=== PATIENT | female | born 1970 | race Caucasian/White ===

== ENCOUNTER → 2020-01-19 | Outpatient (CLI) | payer OTHER ==
--- NOTE | 2020-01-19 12:50 | US ---
EXAMINATION TYPE: US transvaginal DATE OF EXAM: 01/19/2020 COMPARISON: CT March 28, 2015 CLINICAL HISTORY: N97.9 Infertility. TECHNIQUE: Transvaginal (TV). Date of LMP: 01/08/20 EXAM MEASUREMENTS: Uterus: 9.2 x 5.2 x 4.9 cm Endometrial Stripe: 1.1 cm Right Ovary: 1.9 x 1.7 x 1.8 cm Left Ovary: Obscured by overlying bowel gas 1. Uterus: Retroverted, somewhat heterogeneous 2. Endometrium: 4mm of free fluid, hyperechoic foci measuring 1.1 x 0.5 x 4.9cm 3. Right Ovary: exophytic cyst measuring 2.4 x 1.7 x 1.5cm 4. Left Ovary: Obscured by overlying bowel gas 5. Bilateral Adnexa: wnl 6. Posterior cul-de-sac: wnl redemonstration of heterogeneous retroverted uterus with thickened endometrium that has trilaminar ap pearance measuring up to 11 mm. Oval 5 mm hyperechoic focus is present. Small amount free fluid seen anterior to the uterus. Left ovary not identified. Right ovary felt normal in size with 2.4 cm simple appearing adnexal parao varian cyst marked by technologist IMPRESSION: Small amount free fluid in pelvic anterior to uterus is nonspecific. Redemonstration of r etroverted uterus. Normal or abnormal left ovary not identified. Consider further investigation with HSG or pelvic MRI based on clinical correlation.
== END | disposition home or self-care (01) ==
LOC: RADUSWWP 10:36
PROVIDERS: ATTEND Family Medicine
DX: N85.4 Malposition of uterus (principal)
CPT/HCPCS: 76830

== ENCOUNTER → 2020-03-30 | Outpatient (CLI) | payer OTHER ==
--- NOTE | 2020-03-31 07:54 | USB ---
Reason for exam: clinical finding. Physical Findings: Patient refused breast exam. US Breast Limited RT Right limited breast ultrasound including focal area of concern, retroareolar and axilla demonstrates no cystic or solid lesion seen. No sonographic finding to correlate to the palpable abnormality. These results were verbally communicated with the patient and result sheet given to the patient on 03/30/20. ASSESSMENT: Incomplete: need additional imaging evaluation, BI-RAD 0 RECOMMENDATION: Follow-up diagnostic mammogram of the right breast. (When the patient presents with a recent negative test). Manage patient on a clinical basis.
== END | disposition home or self-care (01) ==
LOC: RADMAMWWP 12:58
PROVIDERS: ATTEND Obstetrics & Gynecology
DX: N63.0 Unspecified lump in unspecified breast (principal)

== ENCOUNTER 2023-11-05 03:57 | Observation (INO) | payer OTHER ==
[2023-11-05] MEDS ORDERED: methylPREDNISolone SOD SUCCI 125 MG/2 ML VIAL IM STA (04:26)
[2023-11-05] MEDS ORDERED: methylPREDNISolone SOD SUCCI 125 MG/2 ML VIAL IV STA (04:28)
[2023-11-05] MEDS ORDERED: HYDROmorphone 1 MG/ML 1 ML SYRINGE IVP STA (05:50)
[2023-11-05] MEDS ORDERED: ONDANSETRON 4 MG/2 ML VIAL IVP STA (06:02)
[2023-11-05] MEDS ORDERED: METOCLOPRAMIDE 5 MG/ML 2 ML VIAL IVP STA (06:08)
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
--- NOTE | 2023-11-05 07:58 | CT ---
EXAMINATION TYPE: CT lumbar spine wo con DATE OF EXAM: 11/05/2023 COMPARISON: MRI 11/02/2023 HISTORY: 53-year-old female Back pain x 1.5 weeks TECHNIQUE: Contiguous axial scanning of the lumbar spine without IV contrast. Coronal and sagittal re constructions performed. CT DLP: 818.3 mGycm Automated exposure control for dose reduction was used. FINDINGS: There is a lumbosacral segment is noted as a lumbarized S1. Vertebral body heights are preserved. There is facet arthropathy mid to lower lumbar spine with trace grade 1 anterolisthesis L4-L5. Remaining alignment is maintained. Mild degenerative disc disease with mild disc bulging present throughout. No significant spinal canal stenosis seen. However, there is a right intraforaminal disc extrusion with superior migration of disc material to e fface the right L3-L4 neuroforamen and likely impinges the exiting right L3 nerve root. Minimal inferior foraminal narrowing on the left at L3-L4. Slightly bulky appearance to the partially visualized uterus. IMPRESSION: 1. NOTE A TRANSITIONAL LUMBOSACRAL SEGMENT DENOTED A LUMBARIZED S1. 2. A FOCAL INTRAFORAMINAL DISC HERNIATION WITH EXTRUSION AND SUPERIOR MIGRATION OF DISC MATERIAL TOWA RDS THE RIGHT AT L3-L4 EFFACING THE NEUROFORAMEN AND LIKELY IMPINGING THE EXITING RIGHT L3 NERVE ROOT HERE. CORRELATE FOR CORRESPONDING RADICULAR SYMPTOMS. 3. SCATTERED MILD DEGENERATIVE FACET CHANGES. NO SIGNIFICANT SPINAL CANAL STENOSIS SEEN.
[2023-11-05] MEDS ORDERED: KETOROLAC 15 MG/ML 1 ML VIAL IVP STA (09:04)
[2023-11-05] MEDS ORDERED: NALOXONE 0.4 MG/ML 1 ML VIAL IV PRN (09:34)
[2023-11-05] MEDS ORDERED: HYDROmorphone 1 MG/ML 1 ML SYRINGE IVP PRN (09:34)
[2023-11-05 10:41] VITALS: TEMP 98.5
[2023-11-05] MEDS ORDERED: ALPRAZolam 0.25 MG TAB PO PRN (12:36)
[2023-11-05] MEDS ORDERED: HYDROmorphone 0.5 MG/0.5 ML SYRINGE IVP PRN (12:36)
[2023-11-05] MEDS ORDERED: HYDROcodone/APAP 5-325MG 1 EACH TAB PO PRN (12:37)
[2023-11-05] MEDS ORDERED: HEPARIN SODIUM,PORCINE 5,000 UNIT/ML 1 ML VIAL SQ SCH (12:45)
[2023-11-05] MEDS ORDERED: KETOROLAC 15 MG/ML 1 ML VIAL IVP SCH (12:45)
[2023-11-05 13:32] LABS: ALT 43 U/L (4-34); AST 32 U/L (14-36); African American GFR (CKD) >90 (>60 ml/min/1.73 sqM); Albumin 4.1 g/dL (3.5-5.0); Albumin/Globulin Ratio 1.4; Alkaline Phosphatase 95 U/L (38-126); Anion Gap 11 mmol/L; Blood Urea Nitrogen 21 mg/dL (7-17); Calcium 9.6 mg/dL (8.4-10.2); Carbon Dioxide 23 mmol/L (22-30); Chloride 105 mmol/L (98-107); Globulin 2.9 g/dL; Glucose 104 mg/dL (74-99); Non-African American GFR(CKD) >90 (>60 ml/min/1.73 sqM); Potassium 4.1 mmol/L (3.5-5.1); Sodium 139 mmol/L (137-145); Total Bilirubin 0.7 mg/dL (0.2-1.3)
[2023-11-05 13:35] LABS: Basophils % (A) 0 %; Eosinophils % (A) 0 %; HCT 37.8 % (34.0-46.0); HGB 12.8 gm/dL (11.4-16.0); Lymphocytes # (A) 1.2 k/uL (1.0-4.8); Lymphocytes % (A) 11 %; MCH 31.9 pg (25.0-35.0); MCHC 33.8 g/dL (31.0-37.0); MCV 94.4 fL (80.0-100.0); Mean Platelet Volume 8.6; Monocytes # (A) 0.6 k/uL (0-1.0); Monocytes % (A) 5 %; Neutrophils # (A) 8.7 k/uL (1.3-7.7); Neutrophils % (A) 82 %; Platelet Count 230 k/uL (150-450); RDW 12.7 % (11.5-15.5); WBC 10.5 k/uL (3.8-10.6)
[2023-11-05] MEDS ORDERED: MIDAZOLAM 2 MG/2 ML VIAL IVP STA (14:31)
[2023-11-05 14:37] LABS: Appearance,Urine Cloudy (Clear); Bilirubin,Urine Negative (Negative); Blood,Urine Large (Negative); Color,Urine Yellow; Glucose,Urine (UA) Negative (Negative); Ketones,Urine 1+ (Negative); Leukocyte Esterase,Urine Negative (Negative); Mucus,Urine Many /hpf; Nitrite,Urine Negative (Negative); PH, Urine 5.5 (5.0-8.0); Protein,Urine 1+ (Negative); RBC,Urine 81 /hpf (0-5); Specific Gravity,Urine 1.031 (1.001-1.035); Squamous Epithelial Cell,Urine 7 /hpf (0-4); Urobilinogen,Urine <2.0 mg/dL (<2.0); WBC,Urine 5 /hpf (0-5)
--- NOTE | 2023-11-05 14:54 | P.PAINCN ---
History of Present Illness - Reason for Consult Consult date: 11/05/23 ( ) - History of Present Illness 53-year-old pleasant lady who I have been asked to evaluate in ER for back pain by Dr. Tapia. Patient relates, she fell down the stairs about 2 weeks ago since then she has been having low back pain but for the last 3 days pain is excruciating. Pain is basically located in low back mostly on the right side going down to right lower extremity up to knee mostly in the front side of the t high also right groin and buttocks. Pain is there all the time. Intensity goes up to 10 over 10 and she describes the pain as excruciatingly achy. Any body movement increases the pain. No significant pain releiving factor other than pain medications she received in ER. Patient complains of occasional loss of sensation on the medial aspect of right leg. Denies any weakness of lower extremities other than lack of movement secondary to pain and denies any bowel or bladder dysfunction. CT scan done today shows a herniated lumbar disc. Past Medical History Past Medical History: No Reported History History of Any Multi-Drug Resistant Organisms: None Reported Past Surgical History: Section, Cholecystectomy Additional Past Surgical History / Comment(s): uterine suspension Past Anesthesia/Blood Transfusion Reactions: Postoperative Nausea & Vomiting (PONV) Past Psychological History: No Psychological Hx Reported Past Alcohol Use History: None Reported Past Drug Use History: None Reported - Past Family History Mother Family Medical History: No Reported History Medications and Allergies Home Medications Medication Instructions Recorded Confirmed Type No Known Home Medications 11/05/23 11/05/23 History Allergies Allergy/AdvReac Type Severity Reaction Status Date / Time No Known Allergies Allergy Verified 11/05/23 10:53 Physical Exam Vitals: Vital Signs Temp Pulse Resp BP Pulse Ox 11/05/23 10:00 98.5 F 74 18 137/85 11/05/23 04:02 98.7 F 74 18 160/92 98 Intake and Output 11/04/23 11/05/23 11/05/23 22:59 06:59 14:59 Other: Weight 81.647 kg - Constitutional General appearance: severe distress - Cardiovascular Rhythm: regular - Neurologic Motor strength 5 over 5 bilateral lower extremities at ankle flexion and extension, knee flexion and extension hip flexion and extension. Deep tendon reflexes 2+ patellar reflex, 2+ ankle reflex. Sensory. Intact sensation to touch and pressure in bilateral lower extremities. Straight leg sign positive on right side - Musculoskeletal Limited physical exam was done as because patient is in distress. Significant tenderness in lumbar spine with midline paraspinal areas. Positive paraspinal muscle spasms. Lumbar spine flexion and extension rotation significantly limited secondary to pain. Some tenderness over SI joints bilaterally. Results CBC & Chem 7: 11/05/23 12:44 11/05/23 12:44 Labs: Abnormal Lab Results - Last 24 Hours (Table) 11/05/23 11/05/23 Range/Units 12:44 12:44 Neutrophils # 8.7 H (1.3-7.7) k/uL BUN 21 H (7-17) mg/dL Glucose 104 H (74-99) mg/dL ALT 43 H (4-34) U/L Assessment and Plan Assessment: 1 lumbar radiculopathy. 2 lumbar disc herniation. (1) Lumbar radicular syndrome Current Visit: Yes Status: Acute Priority: High Code(s): M54.16 - RADICULOPATHY, LUMBAR REGION SNOMED Code(s): 260010309 (2) Herniated disc Current Visit: Yes Status: Acute Priority: High Code(s): XAS9368 - SNOMED Code(s): 3707335785 Plan: Lumbar epidural steroid injection. Discussed the procedure in details with the patient, also discussed alternatives and possible complications which may include infection, bleeding, nerve damage, aggravation of pain all of which could be permanent. Also discussed increased probability of spinal bleed secondary to recent intake of NSAIDs at home by patient. Patient understands and all questions were answered. Plan of treatment was discussed by the nurse with Dr. Quijano. Dr. Quijano requested patient will be discharged from outpatient and will follow up with him. Time with Patient: Greater than 30 PQRS Measure Charge Sheet PQRS Narrative: Smoking Status Never smoker Blood Pressure 137/85 Pain Intensity 0 Pain Scale Used Numeric (1 - 10) Scale Used Numeric (1 - 10) Home Medications: Ambulatory Orders No Known Home Medications 11/05/23
[2023-11-05] MEDS ORDERED: ROPIVACAINE 5MG/ML 20ML VIAL ONE (15:00)
[2023-11-05] MEDS ORDERED: IOPAMIDOL M200 10 ML VIAL ONE (15:00)
[2023-11-05] MEDS ORDERED: methylPREDNISolone ACETATE 80 MG/ML 1 ML VIAL ONE (15:00)
--- NOTE | 2023-11-05 15:19 | P.PCN ---
Description of Procedure: PREOPERATIVE DIAGNOSIS: 1- lumbar radiculopathy 2-lumber disc herniation 3-lumbar spinal stenosis POSTOPERATIVE DIAGNOSIS: As above. PROCEDURE Injection of radio contrast material into L4-5 interspace, interpretation of epidurogram, injection of steroid at L4- 5 epidural space under fluoroscopic guidance. ANESTHESIA: Lidocaine 1% subcutaneously. In OR continuous pulse ox, EKG, blood pressure and verbal communication was maintained with the patient. EBL: Minimal PROCEDURE INDICATION: Before the procedure were discussed with the patient detailed procedure, alternatives, complications including infection, bleeding, nerve damage, paralysis all of which could be permanent. Patient understands and all questions were answered. PROCEDURE DESCRIPTION : After getting consent, patient in OR in prone position. Back was prepped with chlorhexidine and draped in sterile fashion. After injecting 10 mL of 1% lidocaine subcutaneously, a 20-gauge Tuohy needle was introduced at L4 5 interspace with loss of resistance technique using a syringe filled with air. Negative CSF, negative blood, negative paresthesia. Needle position was confirmed with AP and lateral view of the fluoroscope. After repeat negative aspiration 2 mL of Omnipaque 200 water soluble contrast was injected. Contrast was noted in the epidural space. No contrast was noted into intrathecal or intravascular space. After repeat negative aspiration 6 mL solution was injected intermittently which consists of 5 mL of preservative-free normal saline mixed with 1 mL of 80 mg Depo-Medrol. Needle was withdrawn intact. Skin was cleansed and Band-Aids was applied. DISPOSITION / PLANS: The patient tolerated the procedure well. No complication. The patient was placed in a supine position and transferred to the recovery area in a stable condition for observation. There was no evidence of lower extremity motor or sensory deficit after the procedure. Patient was discharged from the recovery room after meeting discharge criteria. Home discharge instructions were given to the patient by the staff. The patient was reexamined prior to discharge. Patient will be followed by Dr. Quijano in his office.
[2023-11-05 15:48] VITALS: BP 132/80; PULSE 63; RESP 14
[2023-11-05] MEDS ORDERED: methylPREDNISolone SOD SUCCI 125 MG/2 ML VIAL IV SCH (16:00)
--- NOTE | 2023-11-05 17:50 | FL ---
EXAMINATION TYPE: FL guided pain mgmt statistic DATE OF EXAM: 11/05/2023 FLUOROSCOPY Fluoroscopy time of 13.2 seconds was used during lumbar epidural injection. 2 image/s document/s the procedure. DAP 0.86295 mGycm2
--- NOTE | 2023-11-05 20:13 | HP ---
HISTORY AND PHYSICAL CHIEF COMPLAINT: Back pain, right radiculopathy. HISTORY OF PRESENT ILLNESS: This is a 53-year-old woman with a past medical history of no cardiorespiratory illness, had a fall few days prior and subsequently the patient the patient is complaining of severe pain in the back and radiating to the right leg. SLR was positive and the patient came to [facility] and a CT scan of the lumbar spine showed significant disc herniation with extrusion superior migration of the disc felt worse the L3-L4 any bridging the L3 nerve root, DJD was also noted. Dr. Krishnamurthy is evaluating the patient. There is no history of any fever, rigors, or chills at this time. PAST MEDICAL HISTORY: History of section, cholecystectomy. HOME MEDICATIONS: None. ALLERGIES: None. FAMILY HISTORY: No history of strokes or heart attacks in the family. SOCIAL HISTORY: No history of smoking or alcohol. The patient is a nurse. REVIEW OF SYSTEMS: A 14-point review is negative except as mentioned earlier. PHYSICAL EXAMINATION: VITAL SIGNS: Pulse is 74, blood pressuren, respirations 18. HEENT: Conjunctivae normal neck noncardiac respirations. ABDOMEN: Soft. LEGS: Significant pain on movement of the right leg. Otherwise, no other focal deficits noted. SKIN: no rash joints no active arthropathy. LABORATORY DATA: Not available. ASSESSMENT: 1. Severe back pain and right radiculopathy secondary to disc herniation with extrusion and compression at L3 level with L3 nerve root possibly. 2. Severe gait dysfunction with failure of outpatient treatment. 3. section. 4. Cholecystectomy. RECOMMENDATIONS: This 53-year-old woman presented with multiple complex medical issues. We will monitor the patient closely. I would recommend initiating intravenous steroids, possibly epidural injection. Closely follow with Orthopedic surgery, DVT prophylaxis, pain management. Overall prognosis extremely guarded. This patient will require definitely more than 2 nights stay in the hospital because of multiple complex medical issues as listed above. The patient has even the slightest pain even moving day right leg and the patient is unable to ambulate at all at this time. See orders for further details. MMODL / IJN: [id number] / MTDD
[2023-11-06] MEDS ORDERED: PANTOPRAZOLE 40 MG TABLET PO SCH (07:30)
--- NOTE | 2023-11-06 13:49 | P.DS ---
Providers Date of admission: 11/05/23 09:39 Expected date of discharge: 11/05/23 Attending physician: Juana Blunt Consults: 11/05/23 09:34 Consult Physician Urgent Consulting Provider: Lilian Quijano Consult Reason/Comments: lumbar back pain, lumbar radiculopathy Do you want consulting provider notified?: Already Contacted Primary care physician: Althea Solares Hospital Course: Final diagnosis Severe back pain and right radiculopathy secondary to disc herniation with extrusion and compression at L3 level with L3 nerve root possibly Recent fall with severe gait dysfunction with failure of outpatient treatment Obesity with a BMI of 30.9 GI prophylaxis DVT prophylaxis Full code Discharge disposition Patient is being discharged in a stable condition with guarded prognosis to home. Patient will follow-up with Dr. Solares in the outpatient setting upon discharge. Patient is to continue with close outpatient follow-up with Dr. Quijano orthopedics as well as pain management as scheduled. Total time taken is greater than 35 minutes. Hospital course This is a 53-year-old female who was recently admitted with having a fall 1-2 weeks prior and having severe back pain radiating to the right leg. Patient showed significant decline in gait and difficulty with walking and uncontrolled pain came here for further evaluation. Orthopedics Dr. Quijano consulted along [facility] pain management and patient scheduled to undergo steroid injection for pain relief. Patient did have a CT of the lumbar spine which showed significant disc herniation with extrusion of the superior migration of the disc felt worse at the L3-L4 and also degenerative disc disease was noted. Patient underwent steroid injection and had been cleared for discharge by orthopedics recommending close outpatient follow-up. Please refer to other consultation notes for further HPI. Patient has also been instructed to follow-up with primary care provider on discharge. Would recommend refraining from work until cleared by orthopedics. Currently no reports of chest pain, shortness of breath, or palpitations. Patient is afebrile. No reports of nausea or vomiting and patient is tolerating diet. Patient will be discharged home today. Guarded prognosis. Physical exam: Gen: This is a 53-year-old female who is awake, alert and oriented 3, well- developed, well-nourished, obese HEENT: Head is atraumatic, normocephalic. Pupils equal, round. Sclerae is anicteric. NECK: Supple. No JVD. No lymphadenopathy. No thyromegaly. LUNGS: Clear to auscultation. No wheezes or rhonchi. No intercostal retractions. HEART: Regular rate and rhythm. No murmur. ABDOMEN: Soft. Bowel sounds are present. No masses. No tenderness. EXTREMITIES: No pedal edema. No calf tenderness. NEUROLOGICAL: Patient is awake, alert and oriented x3. Cranial nerves 2 through 12 are grossly intact. Please refer to medication reconciliation sheet for a list of medications. The impression and plan of care has been dictated by Sarahi Sahu, Nurse Practitioner as directed. Dr. Nigel MD I have performed a history and examination and MDM of this patient, discussed the same with the dictator, and agree with the dictator's assessment and plan as written ,documented as a scribe. Based on total visit time, I have performed more than 50% of the visit. Patient Condition at Discharge: Stable Plan - Discharge Summary New Discharge Prescriptions: No Action No Known Home Medications Discharge Medication List No Known Home Medications 11/05/23 [History] Follow up Appointment(s)/Referral(s): Lilian Quijano DO [Doctor of Osteopathic Medicine] - 2 Weeks Althea Solares MD [Primary Care Provider] - 1-2 days Discharge/Stand Alone Forms: Anes Pain/Wismer Instructions Discharge Disposition: HOME SELF-CARE
== END 2023-11-05 15:59 | disposition home or self-care (01) ==
LOC: EC 03:57 → 6NMEDSUR 09:39
PROVIDERS: ADMIT Internal Medicine; ATTEND Internal Medicine
DX: M46.20 Osteomyelitis of vertebra, site unspecified (principal); M46.40 Discitis, unspecified, site unspecified; M48.061 Spinal stenosis, lumbar region without neurogenic claudication; B02.9 Zoster without complications; E11.9 Type 2 diabetes mellitus without complications; F10.20 Alcohol dependence, uncomplicated; F17.200 Nicotine dependence, unspecified, uncomplicated; G06.2 Extradural and subdural abscess, unspecified; G83.4 Cauda equina syndrome; I10 Essential (primary) hypertension; I25.10 Atherosclerotic heart disease of native coronary artery without angina pectoris; M19.90 Unspecified osteoarthritis, unspecified site
CPT/HCPCS: 96365; 96367; 96375; 99285; 80053; 85025; 81001; 81025; 72131; 62323; G0378; J2250; J1040; J2765; J2930; J1170; J1885; Q9966; J2795

== ENCOUNTER → 2024-01-01 | Outpatient (CLI) | payer OTHER ==
[2024-01-01 11:36] VITALS: BP 132/88; PULSE 82; RESP 16; TEMP 97.1
--- NOTE | 2024-01-01 14:49 | P.PAINPG ---
PQRS Measure Charge Sheet Comment: HISTORY OF PRESENT ILLNESS: A 53 yr old female as a referral from Dr Keyes presents today w severe and chronic LBP secondary to DDD, spondylosis and facet arthropathy without myelopathy for evaluation s/p SHELDON L4-L5 while inpatient. Pt states she experienced 50 % pain relief x 8 wks s/p procedure. Pt states pain level is provoked at 6 /10 in intensity, constant, localized in the mid lumbar spine, predominantly axial, achy in character w occasional shooting pain towards the R thigh. Pain is provoked by over activity. Pain is alleviated by PT integrated w massage semi weekly x 5 wks which she is currently in, physician guided exercises/ stretches daily since Oct 2023, medications (Ibu), heat, repositio marc and rest. Oswestry axial pain score at 28. PMH: OA PSH: C- Section, Cholecystectomy, Uterine Suspension SH: Negative x3 FH: Mo- No Reported History All: See list Meds: See list Interventional procedures include SHELDON L4-L5 x1 (Oct 2023) Medications include Ibu REVIEW OF ORGAN SYSTEMS: CONSTITUTIONAL: No fevers or chills. No recent weight loss. NEUROLOGICAL: + numbness and tingling along the distal extremities. No seizure disorders or headaches. MUSCULOSKELETAL: + pain PSYCHIATRIC: Denies current depression or suicidal thoughts. Physical Examinations : Constitutional : Cooperative , not in acute distress . Neurologic : Cranial nerve II to XII intact. No focal neurological deficits. Psychiatric : alert & oriented x 3. Matching mood & appropriate affect. Judgment & insight intact. Musculoskeletal : Cervical Spine Motor strength in the deltoid and biceps: Normal right side. Normal Left side Motor strength biceps and the wrist extensors: Normal right side . Normal left side Motor strength in the triceps muscle: Normal right side. Normal left side Deep tendon reflexes: Normal at the biceps. Normal at Brachioradialis. Normal at triceps Vertebral body tenderness to deep palpation over Cervical facet loading test: positive bilaterally Spurling test: positive bilaterally Neck distraction test: positive bilaterally Lilibeth sign: positive bilaterally Lumbar spine Motor strength lower extremities ,thigh and legs 5/5 Right side , 5/5 Left side Deep tendon reflexes : Normal Knee Jerk. Normal Ankle Jerk Vertebral body tenderness over L4 Carrillo Test positive R L4-L5 Lumbar facet Loading Test: positive Right / positive Left Range of motion of the lumbar spine Flexion 30 degrees, extension 10 degrees Straight Leg Raise test: Left/ Right positive at degrees Apollo test: positive right / positive left. Severe tenderness over the Sacroiliac joint on the Right / Left sides Gaenslen test: positive bilaterally Seated flexion test: positive bilaterally. Sacral spine : Severe tenderness over the Sacroiliac joint: right side / left side Range of motion: Flexion of the lumbar spine <60 degrees Range of motion: Extension of the lumbar spine <20 degrees Gaenslen's Test positive Apollo test: positive right side / left side Thigh Thrust Test Sacral Thrust Test Imaging: CT noncontrast of the lumbar spine from 11/05/23 reviewed Assessment/ Plan : Lumbar DDD Recommendation of R paramedian SHELDON L4-L5 #2. May need a series of injections for optimal pain relief. Risks, benefits of procedure discussed and patient verbalized understanding. Admits to anti- coagulant use or medical history of diabetes. Protocol for discontinuation/ continuation of medications trevor procedure discussed. All questions answered. I have spent greater than 30 minutes on patient care today. Dr Hsu was available by phone for the evaluation of this patient. The time was used to review the medical records including relevant urine studies and Prescription history (MAPs), review of the available imaging, evaluation and examination of the patient, coordination of care with the medical staff and if applicable referring physicians, as well as creation of the medical record PQRS Narrative: Smoking Status Never smoker Home Medications: Ambulatory Orders No Known Home Medications 11/05/23 Controlled Substance Measures - Controlled Substance Measures Is patient prescribed a controlled substance at discharge?: No
== END ==
LOC: PNWHC3 11:02
PROVIDERS: ATTEND Specialist
DX: M51.36 Other intervertebral disc degeneration, lumbar region (principal); M19.90 Unspecified osteoarthritis, unspecified site
CPT/HCPCS: 99211

== ENCOUNTER → 2024-01-14 | Day surgery (SDC) | payer OTHER ==
[2024-01-09 14:25] VITALS: BMI 26.6
[~2024-01-14] MED LIST: IOPAMIDOL M200 10 ML VIAL ONE; LACTATED RINGERS 1,000 ML IV SCH; methylPREDNISolone ACETATE 80 MG/ML 1 ML VIAL ONE
[2024-01-14 11:34] VITALS: TEMP 98.4
--- NOTE | 2024-01-14 12:26 | P.PCN ---
Date of Procedure: 01/14/24 Procedure(s) Performed: PREOPERATIVE DIAGNOSIS: 1- Lumbar Degenerative Disc Diseases 2-Lumbar Radiculopathy. 3-lumbar herniated disc disease POSTOPERATIVE DIAGNOSIS: Same as preop diagnosis PROCEDURE 1. Lumbar epidural steroid injection under fluoroscopic guidance at the L4-5 level. (Fluoroscopy imaging was available in radiology department) 2. Lumbar epidurogram. ANESTHESIA: Lidocaine 1% 3 and then only. EBL: Minimal PROCEDURE INDICATION: The patient with low back pain and radiculitis symptoms unresponsive to conservative treatment. Fluoroscopy was used to optimize visualization of the needle placement and to maximize safety. PROCEDURE DESCRIPTION / TECHNIQUE: The patient was seen and identified in the preoperative area. Risks, benefits, complications including but not limited to infections ,bleeding ,allergic reaction to the medications ,nerve damage and not complete pain releife , and alternatives were discussed with the patient. The patient agreed to proceed with the procedure and signed the consent, and vital signs were stable. Patient was taken to the OR and time out was completed. The patient was placed in the prone position on procedure table and a pillow was placed under the abdomen to reduce lumbar lordosis. The lumbosacral area was prepped and draped in the usual sterile fashion.ere closely monitored during the procedure. Vital signs was monitered during the entire procedure. Using anterior-posterior fluoroscopy, the L4-5 interlaminar space was identified and the skin over this site was marked and then infiltrated with 1% lidocaine subcutaneously. Subsequently, a 20-gauge Tuohy epidural needle was inserted and advanced toward the epidural space using the ``Loss of resistance technique and guided by AP and lateral fluoroscopy. The correct needle position in the epidural space was verified with the injection of 2 mL of the water soluble contrast dye Isovue 200 contrast and observing an excellent epidurogram with the epidural spread of the dye, after negative aspiration for blood and CSF and in the absence of paresthesias. Again after negative aspiration, a 6 ml mixture containing 80 mg of Depo-medrol ( Preservetive Free ), and 2 ml of preservative free Normal Saline, and 2 ml of preservative free lidocaine 1% solution was injected and a washout of epidurogram was seen. Needle was withdrawn intact, skin was cleansed, and bandages were applied. COMPLICATIONS: None DISPOSITION / PLANS: The patient was placed in a supine position and transferred to the recovery area in a stable condition for observation. There was no evidence of lower extremity motor or sensory deficit after the procedure. Patient was discharged from the recovery room after meeting discharge criteria. Home discharge instructions were given to the patient by the staff. The patient was reexamined prior to discharge. The patient will schedule a follow up in the clinic in 2-4 weeks.
[2024-01-14 12:44] VITALS: BP 157/71; PULSE 77; RESP 16
--- NOTE | 2024-01-14 12:52 | FL ---
EXAMINATION TYPE: FL guided pain mgmt statistic DATE OF EXAM: 01/14/2024 FLUOROSCOPY Fluoroscopy time of 2 seconds was used during lumbar epidural steroid injection. 0 image/s document/ s the procedure. DAP 0.02761 mGycm2.
== END ==
LOC: ORPAIN 11:02
PROVIDERS: ATTEND Specialist
DX: M51.16 Intervertebral disc disorders with radiculopathy, lumbar region (principal); M47.26 Other spondylosis with radiculopathy, lumbar region
CPT/HCPCS: 81025; 62323; J1040; Q9966

== ENCOUNTER → 2024-01-29 | Outpatient (CLI) | payer OTHER ==
[2024-01-29 12:49] VITALS: RESP 16
--- NOTE | 2024-01-29 13:52 | P.PAINPG ---
PQRS Measure Charge Sheet Comment: HISTORY OF PRESENT ILLNESS: A 53 yr old female presents today w severe and chronic LBP since Oct 2023 secondary to DDD, spondylosis and facet arthropathy without myelopathy for evaluation s/p SHELDON L4-L5 #2. Pt states she experienced 0 % pain relief s/p procedure. Pt states pain level is provoked at 8 /10 in intensity, constant, localized in the R lumbar spine, predominantly axial, burning in character w occasional shooting pain towards the R knee. Pain is provoked by over activity. Pain is alleviated by PT integrated w massage semi weekly x 10 wks which she is currently in, physician guided exercises/ stretches daily since Oct 2023, medications, heat, repositioning and rest. Oswestry axial pain score at 28. Interventional procedures include SHELDON L4-L5 x2 (Oct 2023, Jan 2024) Medications include Ibu REVIEW OF ORGAN SYSTEMS: CONSTITUTIONAL: No fevers or chills. No recent weight loss. NEUROLOGICAL: + numbness and tingling along the distal extremities. No seizure disorders or headaches. MUSCULOSKELETAL: + pain PSYCHIATRIC: Denies current depression or suicidal thoughts. Physical Examinations : Constitutional : Cooperative , not in acute distress . Neurologic : Cranial nerve II to XII intact. No focal neurological deficits. Psychiatric : alert & oriented x 3. Matching mood & appropriate affect. Judgment & insight intact. Musculoskeletal : Cervical Spine Motor strength in the deltoid and biceps: Normal right side. Normal Left side Motor strength biceps and the wrist extensors: Normal right side . Normal left side Motor strength in the triceps muscle: Normal right side. Normal left side Deep tendon reflexes: Normal at the biceps. Normal at Brachioradialis. Normal at triceps Vertebral body tenderness to deep palpation over Cervical facet loading test: positive bilaterally Spurling test: positive bilaterally Neck distraction test: positive bilaterally Lilibeth sign: positive bilaterally Lumbar spine Motor strength lower extremities ,thigh and legs 5/5 Right side , 5/5 Left side Deep tendon reflexes : Normal Knee Jerk. Normal Ankle Jerk Vertebral body tenderness over L5 Carrillo Test positive R > L L5- S1 Lumbar facet Loading Test: positive Right / positive Left Range of motion of the lumbar spine Flexion 30 degrees, extension 10 degrees Straight Leg Raise test: Left/ Right positive at degrees Apollo test: positive right / positive left. Severe tenderness over the Sacroiliac joint on the Right / Left sides Gaenslen test: positive bilaterally Seated flexion test: positive bilaterally. Sacral spine : Severe tenderness over the Sacroiliac joint: right side / left side Range of motion: Flexion of the lumbar spine <60 degrees Range of motion: Extension of the lumbar spine <20 degrees Gaenslen's Test positive Apollo test: positive right side / l eft side Thigh Thrust Test Sacral Thrust Test Imaging: CT noncontrast of the lumbar spine from 11/05/23 reviewed Assessment/ Plan : Lumbar DDD Recommendation of BL TFESI L5-S1 #3 and chiropractic script x 8 wks to integrate w traction/ decompression. May need a series of injections for optimal pain relief. Risks, benefits of procedure discussed and patient verbalized understanding. Admits to anti- coagulant use or medical history of diabetes. Protocol for discontinuation/ continuation of medications trevor procedure discussed. All questions answered. I have spent greater than 30 minutes on patient care today. Dr Hsu was available by phone for the evaluation of this patient. The time was used to review the medical records including relevant urine studies and Prescription history (MAPs), review of the available imaging, evaluation and examination of the patient, coordination of care with the medical staff and if applicable referring physicians, as well as creation of the medical record PQRS Narrative: Smoking Status Never smoker Hx Alcohol Use (MH) No Home Medications: Ambulatory Orders Ascorbic Acid [Vitamin C] 2,000 mg PO DAILY 01/09/24 Controlled Substance Measures - Controlled Substance Measures Is patient prescribed a controlled substance at discharge?: No
== END ==
LOC: PNWHC3 12:11
PROVIDERS: ATTEND Specialist
DX: M51.37 Other intervertebral disc degeneration, lumbosacral region (principal)
CPT/HCPCS: 99211

== ENCOUNTER 2024-02-18 11:41 | Day surgery (SDC) | payer OTHER ==
[2024-02-14 10:04] VITALS: BMI 26.6
[~2024-02-18 11:41] MED LIST changes: -IOPAMIDOL M200 10 ML VIAL ONE; -methylPREDNISolone ACETATE 80 MG/ML 1 ML VIAL ONE
[2024-02-18 12:30] VITALS: RESP 16; TEMP 98.2
[2024-02-18] MEDS ORDERED: methylPREDNISolone ACETATE 80 MG/ML 1 ML VIAL ONE (13:06)
[2024-02-18] MEDS ORDERED: IOPAMIDOL M200 10 ML VIAL ONE (13:06)
--- NOTE | 2024-02-18 13:18 | P.PCN ---
Date of Procedure: 02/18/24 Procedure(s) Performed: PREOPERATIVE DIAGNOSIS: 1-Lumbar radiculopathy . 2-lumbar degenerative disc disease. 3-lumbar spondylosis with lumbar facet arthropathy without myelopathy POSTOPERATIVE DIAGNOSIS: 1-lumbar radiculopathy. 2-lumbar degenerative disc disease. 3-lumbar spondylosis with facet arthropathy without myelopathy PROCEDURE 1. Transforaminal epidural steroid injection under fluoroscopic guidance at bilateral L5-S1 level. (Fluoroscopy images stored on file in the radiology Department ) 2. Lumbar epidurogram . ANESTHESIA: Local with 1% lidocaine 3 ml. EBL: Minimal PROCEDURE INDICATION: The patient with low back pain and radiculopathy symptoms unresponsive to conservative treatment. PROCEDURE DESCRIPTION / TECHNIQUE: The patient was seen and identified in the preoperative area. Risks, benefits, complications, and alternatives were discussed with the patient. The patient agreed to proceed with the procedure and signed the consent, and vital signs were stable. Patient was taken to the OR and time out was completed. The patient was placed in the prone position on procedure table and a pillow was placed under the abdomen to reduce lumbar lordosis. The lumbosacral area was prepped and draped in the usual sterile fashion. Critical pause was taken. Vital signs were closely monitored during the procedure. Using oblique fluoroscopy, the chin of the `Juan ACornel dog at Right L5-S1 level was identified, and the skin and deeper tissues just below was localized with 1% lidocaine. Subsequently, a 22-gauge 3.5-inch spinal needle was advanced under a tunneled view fluoroscopic guidance just underneath the chin of the `Justiny dog at the right L5-S1 Under lateral fluoroscopy, the needle was then advanced to the posterior border of the interforaminal space. After negative aspiration of CSF and blood and with no paresthesias, 1 mL Isovue 200 contrast dye was injected excellent epidurogram and outlining of the nerve root Subsequently, 3 mL of block solution containing 40 mg Depo-Medrol and 2 mL of 0.9% normal saline PF was injected. Needle was removed and the same procedure was repeated at the left L5-S1 level . At the end of the procedure, skin was cleansed, and bandages were applied. COMPLICATIONS:none DISPOSITION / PLANS: The patient was placed in a supine position and transferred to the recovery area in a stable condition for observation. There was no evidence of lower extremity motor or sensory deficit after the procedure. Patient was discharged from the recovery room after meeting discharge criteria. Home discharge instructions were given to the patient by the staff. The patient was reexamined prior to discharge.
[2024-02-18 13:51] VITALS: BP 143/79; PULSE 76
--- NOTE | 2024-02-18 14:05 | FL ---
EXAMINATION TYPE: FL guided pain mgmt statistic DATE OF EXAM: 02/18/2024 HISTORY: Fluoroscopy time Total dose area product (DAP) in uGy*m?, mGy*cm? (or similar): 0.94983 IMPRESSION: 1. Fluoroscopy time.
== END 2024-02-18 13:46 ==
LOC: ORPAIN 11:41
PROVIDERS: ATTEND Specialist
DX: M51.16 Intervertebral disc disorders with radiculopathy, lumbar region (principal); M47.26 Other spondylosis with radiculopathy, lumbar region
CPT/HCPCS: 64483; 81025

== ENCOUNTER → 2024-03-02 | Outpatient (CLI) | payer OTHER ==
[2024-03-02 12:55] VITALS: BP 132/72; PULSE 89; RESP 16; TEMP 98.2
--- NOTE | 2024-03-02 13:51 | P.PAINPG ---
Objective - Vital Signs Vital signs: Intake & Output 03/01/24 03/02/24 03/02/24 18:59 06:59 18:59 Weight 91.626 kg PQRS Measure Charge Sheet Comment: HISTORY OF PRESENT ILLNESS: A 53 yr old female presents today w severe and chronic LBP since Oct 2023 secondary to DDD, spondylosis and facet arthropathy without myelopathy for evaluation s/p BL TFESI L5-S1 #3. Pt states she experienced 80 % pain relief x 2 wks s/p procedure. Pt states pain level is provoked at 2 /10 in intensity, constant, localized in the R lumbar spine, predominantly axial, burning in character w occasional shooting pain towards the R knee. Pain is provoked by over activity. Pain is alleviated by PT integrated w massage semi weekly x 10 wks which she is currently in, physician guided exercises/ stretches daily since Oct 2023, medications, heat, repositioning and rest. Oswestry axial pain score at 14. Interventional procedures include SHELDON L4-L5 x2 (Oct 2023, Jan 2024), BL TFESI L5-S1 x1 (Feb 2024) Medications include Ibu REVIEW OF ORGAN SYSTEMS: CONSTITUTIONAL: No fevers or chills. No recent weight loss. NEUROLOGICAL: + numbness and tingling along the distal extremities. No seizure disorders or headaches. MUSCULOSKELETAL: + pain PSYCHIATRIC: Denies current depression or suicidal thoughts. Physical Examinations : Constitutional : Cooperative , not in acute distress . Neurologic : Cranial nerve II to XII intact. No focal neurological deficits. Psychiatric : alert & oriented x 3. Matching mood & appropriate affect. Judgment & insight intact. Musculoskeletal : Cervical Spine Motor strength in the deltoid and biceps: Normal right side. Normal Left side Motor strength biceps and the wrist extensors: Normal right side . Normal left side Motor strength in the triceps muscle: Normal right side. Normal left side Deep tendon reflexes: Normal at the biceps. Normal at Brachioradialis. Normal at triceps Vertebral body tenderness to deep palpation over Cervical facet loading test: positive bilaterally Spurling test: positive bilaterally Neck distraction test: positive bilaterally Lilibeth sign: positive bilaterally Lumbar spine Motor strength lower extremities ,thigh and legs 5/5 Right side , 5/5 Left side Deep tendon reflexes : Normal Knee Jerk. Normal Ankle Jerk Vertebral body tenderness over L5 Carrillo Test positive R > L L5- S1 Lumbar facet Loading Test: positive Right / positive Left Range of motion of the lumbar spine Flexion 30 degrees, extension 10 degrees Straight Leg Raise test: Left/ Right positive at degrees Apollo test: positive right / positive left. Severe tenderness over the Sacroiliac joint on the Right / Left sides Gaenslen test: positive bilaterally Seated flexion test: positive bilaterally. Sacral spine : Severe tenderness over the Sacroiliac joint: right side / left side Range of motion: Flexion of the lumbar spine <60 degrees Range of motion: Extension of the lumbar spine <20 degrees Gaenslen's Test positive Apollo test: positive right side / left side Thigh Thrust Test Sacral Thrust Test Imaging: CT noncontrast of the lumbar spine from 11/05/23 reviewed Assessment/ Plan : Lumbar DDD Will manage residual pain and may RTC on an as needed basis. All questions answered. I have spent greater than 30 minutes on patient care today. Dr Hsu was available by phone for the evaluation of this patient. The time was used to review the medical records including relevant urine studies and Prescription history (MAPs), review of the available imaging, evaluation and examination of the patient, coordination of care with the medical staff and if applicable referring physicians, as well as creation of the medical record PQRS Narrative: Smoking Status Never smoker Hx Alcohol Use (MH) No Home Medications: Ambulatory Orders No Known Home Medications 02/14/24 Controlled Substance Measures - Controlled Substance Measures Is patient prescribed a controlled substance at discharge?: No
== END ==
LOC: PNWHC3 12:31
PROVIDERS: ATTEND Specialist
DX: M51.37 Other intervertebral disc degeneration, lumbosacral region (principal)
CPT/HCPCS: 99211

== ENCOUNTER → 2024-11-26 | Outpatient (CLI) | payer OTHER ==
--- NOTE | 2024-11-26 14:32 | P.PAINPG ---
PQRS Measure Charge Sheet Comment: HISTORY OF PRESENT ILLNESS: A 54 yr old female presents today w severe and chronic LBP since Oct 2023 secondary to radiculopathy, spondylosis and facet arthropathy without myelopathy for evaluation. Pt states pain level is provoked at 6 /10 in intensity, constant, localized in the R lumbar spine, predominantly axial, burning in character w occasional shooting pain towards the LEs, R> L. Pain is provoked by over activity. Pain is alleviated by PT integrated w massage semi weekly x 10 wks which she is currently in, physician guided exercises/ stretches daily since Oct 2023, medications, heat, repositioning and rest. Interventional procedures include SHELDON L4-L5 x2 (Oct 2023, Jan 2024), BL TFESI L5-S1 x1 (Feb 2024) Medications include Ibu REVIEW OF ORGAN SYSTEMS: CONSTITUTIONAL: No fevers or chills. No recent weight loss. NEUROLOGICAL: + numbness and tingling along the distal extremities. No seizure disorders or headaches. MUSCULOSKELETAL: + pain PSYCHIATRIC: Denies current depression or suicidal thoughts. Physical Examinations : Constitutional : Cooperative , not in acute distress . Neurologic : Cranial nerve II to XII intact. No focal neurological deficits. Psychiatric : alert & oriented x 3. Matching mood & appropriate affect. Judgment & insight intact. Musculoskeletal : Cervical Spine Motor strength in the deltoid and biceps: Normal right side. Normal Left side Motor strength biceps and the wrist extensors: Normal right side . Normal left side Motor strength in the triceps muscle: Normal right side. Normal left side Deep tendon reflexes: Normal at the biceps. Normal at Brachioradialis. Normal at triceps Vertebral body tenderness to deep palpation over Cervical facet loading test: positive bilaterally Spurling test: positive bilaterally Neck distraction test: positive bilaterally Lilibeth sign: positive bilaterally Lumbar spine Motor strength lower extremities ,thigh and legs 5/5 Right side , 5/5 Left side Deep tendon reflexes : Normal Knee Jerk. Normal Ankle Jerk Vertebral body tenderness over L5 Carrillo Test positive R > L L5- S1 Lumbar facet Loading Test: positive Right / positive Left Range of motion of the lumbar spine Flexion 30 degrees, extension 10 degrees Straight Leg Raise test: Left/ Right positive at degrees Apollo test: positive right / positive left. Severe tenderness over the Sacroiliac joint on the Right / Left sides Gaenslen test: positive bilaterally Seated flexion test: positive bilaterally. Sacral spine : Severe tenderness over the Sacroiliac joint: right side / left side Range of motion: Flexion of the lumbar spine <60 degrees Range of motion: Extension of the lumbar spine <20 degrees Gaenslen's Test positive Apollo test: positive right side / left side Thigh Thrust Test Sacral Thrust Test Imaging: CT non contrast of the lumbar spine from 11/05/23 reviewed Assessment/ Plan : Lumbar radiculopathy Recommendation of BL TFESI L5-S1 #2. Risks, benefits of procedure discussed and pt verbalized understanding. Protocol for discontinuation/ continuation of medications trevor procedure discussed. All questions answered. I have spent greater than 30 minutes on patient care today. Dr Hsu was available by phone for the evaluation of this patient. The time was used to review the medical records including relevant urine studies and Prescription history (MAPs), review of the available imaging, evaluation and examination of the patient, coordination of care with the medical staff and if applicable referring physicians, as well as creation of the medical record PQRS Narrative: Smoking Status Never smoker Hx Alcohol Use (MH) No Home Medications: Ambulatory Orders Acetaminophen Tab [Tylenol Tab] 1,000 mg PO Q6HR PRN 11/26/24 Ibuprofen [Motrin Ib] 1 tab PO DAILY PRN 11/26/24 Controlled Substance Measures - Controlled Substance Measures Is patient prescribed a controlled substance at discharge?: No
[2024-11-26 14:35] VITALS: BP 134/83; PULSE 91; RESP 16; TEMP 98
== END ==
LOC: PNWHC3 14:04
PROVIDERS: ATTEND Specialist
DX: M54.17 Radiculopathy, lumbosacral region (principal)
CPT/HCPCS: 99211

== ENCOUNTER 2024-11-30 14:34 | Observation (INO) | payer OTHER ==
--- NOTE | 2024-11-30 14:47 | ED ---
Chest Pain HPI - General Source: patient, RN notes reviewed Mode of arrival: ambulatory Limitations: no limitations <Carli Bullard - Last Filed: 11/30/24 14:46> - General Source: patient, RN notes reviewed Mode of arrival: ambulatory Limitations: no limitations <Srikanth Christensen - Last Filed: 11/30/24 16:43> - General Chief Complaint: Chest Pain Stated Complaint: chest pain Time Seen by Provider: 11/30/24 14:46 - History of Present Illness Initial Comments: Quick [id number] female presents emergency room chief complaint of constant chest pain that started at 6 AM. States that pain is worse on inspiration. Denies radiation of pain or associated nausea or vomiting (Carli Bullard) Patient is a pleasant 54-year-old female presenting to the emergency department with concerns with chest discomfort. Onset of symptoms was around 630 this morning. Discomfort has been persistent and still continues. Discomfort is rated 6 or 7/10. Discomfort feels like a pinch. There is some radiation towards the back. Patient does have some minimal associated dyspnea. No history of similar symptoms previously. No nausea or diaphoresis. (Srikanth Christensen) - Related Data Home Medications Medication Instructions Recorded Confirmed Acetaminophen Tab [Tylenol Tab] 1,000 mg PO Q6HR PRN 11/26/24 11/26/24 Ibuprofen [Motrin Ib] 1 tab PO DAILY PRN 11/26/24 11/26/24 Allergies Allergy/AdvReac Type Severity Reaction Status Date / Time No Known Allergies Allergy Verified 11/30/24 14:40 Review of Systems ROS Other: All systems not noted in ROS Statement are negative. <Carli Bullard - Last Filed: 11/30/24 14:46> ROS Other: All systems not noted in ROS Statement are negative. Constitutional: Denies: fever Eyes: Denies: eye pain ENT: Denies: ear pain Respiratory: Reports: as per HPI. Denies: cough Cardiovascular: Reports: as per HPI, chest pain Endocrine: Denies: fatigue Gastrointestinal: Denies: abdominal pain Musculoskeletal: Reports: as per HPI Skin: Denies: rash Neurological: Denies: weakness <Srikanth Christensen - Last Filed: 11/30/24 16:43> ROS Statement: Those systems with pertinent positive or pertinent negative responses have been documented in the HPI. EKG Findings - EKG Results: EKG: interpreted by [facility], sinus rhythm, normal axis, normal QRS, normal ST/T <Srikanth Christensen - Last Filed: 11/30/24 16:43> Past Medical History Past Medical History: Hyperlipidemia Additional Past Medical History / Comment(s): Dry eyes. Migraines. Paresthesia since Oct 2023 from a fall. History of Any Multi-Drug Resistant Organisms: None Reported Past Surgical History: Section, Cholecystectomy Additional Past Surgical History / Comment(s): Uterine suspension. Past Anesthesia/Blood Transfusion Reactions: Family History of Problems w/ Anesthesia, Motion Sickness, Postoperative Nausea & Vomiting (PONV) Additional Past Anesthesia/Blood Transfusion Reaction / Comment(s): Hx blood transfusion with no problems. "Mother coded during a surgery, was having knee drained, got too much". Past Psychological History: No Psychological Hx Reported Smoking Status: Never smoker Past Alcohol Use History: None Reported Past Drug Use History: None Reported - Past Family History Mother Family Medical History: No Reported History <Carli Bullard - Last Filed: 11/30/24 14:46> General Exam Limitations: no limitations <Carli Bullard - Last Filed: 11/30/24 14:46> Limitations: physical limitation (Patient seen in the waiting room because no beds are available) General appearance: alert, in no apparent distress Head exam: Present: normocephalic Eye exam: Present: normal appearance Neck exam: Present: normal inspection Respiratory exam: Present: normal lung sounds bilaterally. Absent: chest wall tenderness Cardiovascular Exam: Present: regular rate, normal rhythm, normal heart sounds Expanded Peripheral pulses: 2+: Radial (R), Radial (L), Posterior Tibialis (R), Posterior Tibialis (L) GI/Abdominal exam: Present: soft. Absent: tenderness Extremities exam: Present: normal inspection. Absent: pedal edema, calf tenderness Neurological exam: Present: alert Psychiatric exam: Present: normal affect, normal mood Skin exam: Present: normal color <Srikanth Christensen - Last Filed: 11/30/24 16:43> - General Exam Comments Initial Comments: Visual Physical Exam Vital signs reviewed General: Well-appearing, nontoxic, no acute distress. Head: Normocephalic, atraumatic Eyes: PERRLA, EOMI ENT: Airway patent Chest: Nonlabored breathing Skin: No visual rash, normal skin tone Neuro: Alert and oriented 3 Musculoskeletal: No gross abnormalities (Carli Bullard) Course Vital Signs 11/30/24 14:36 Temperature 98.3 F Pulse Rate 91 Respiratory 20 Rate Blood Pressure 148/80 O2 Sat by Pulse 99 Oximetry Chest Pain MDM <Carli Bullard - Last Filed: 11/30/24 14:46> <Srikanth Christensen - Last Filed: 11/30/24 16:43> - TRUDY I completed the quick note portion of this chart signed Carli Bullard PA-C (Carli Bullard) Was pt. sent in by a medical professional or institution (ADDISON Shetty, GOVERNMENT OPERATIONS CONSULTANT, urgent care, hospital, or fci...) When possible be specific @ -No Did you speak to anyone other than the patient for history (EMS, parent, family, police, friend...)? What history was obtained from this source @ -No Did you review nursing and triage notes (agree or disagree)? Why? @ -I reviewed and agree with nursing and triage notes Were old charts reviewed (outside hosp., previous admission, EMS record, old EKG, old radiological studies, urgent care reports/EKG's, fci records)? Report findings @ -No old charts were reviewed Differential Diagnosis (chest pain, altered mental status, abdominal pain women, abdominal pain men, vaginal bleeding, weakness, fever, dyspnea, syncope, headache, dizziness, GI bleed, back pain, seizure, CVA, palpatations, mental health, musculoskeletal)? @ -Differential Chest Pain: Stable Angina, Unstable Angina, STEMI, NSTEMI Aortic Dissection, Pneumothorax, Musculoskeletal, Esophageal Spasm GERD, Cholecystitis, Pancreatitis, Zoster, this is not meant to be an all-inclusive list. EKG interpreted by me (3pts min.). @ -As above X-rays interpreted by me (1pt min.). @ -Two-view chest x-ray shows no acute process CT interpreted by me (1pt min.). @ -None done U/S interpreted by me (1pt. min.). @ -None done What testing was considered but not performed or refused? (CT, X-rays, U/S, labs)? Why? @ -D-dimer considered and this will be added. What meds were considered but not given or refused? Why? @ -Aspirin and nitro will be added Did you discuss the management of the patient with other professionals (professionals i.e. , PA, GOVERNMENT OPERATIONS CONSULTANT, lab, RT, psych nurse, psychotherapist social worker, ladderman, teacher, airline pilot/first officer, test case developer)? Give summary @ -[facility] to admit for Dr. Solares Was smoking cessation discussed for >3mins.? @ -No Was critical care preformed (if so, how long)? @ -No Were there social determinants of health that impacted care today? How? (Homelessness, low income, unemployed, alcoholism, drug addiction, transportation, low edu. Level, literacy, decrease access to med. care, fdc, rehab)? @ -No Was there de-escalation of care discussed even if they declined (Discuss DNR or withdrawal of care, Hospice)? DNR status @ -No What co-morbidities impacted this encounter? (DM, HTN, Smoking, COPD, CAD, Cancer, CVA, ARF, Chemo, Hep., AIDS, mental health diagnosis, sleep apnea, morbid obesity)? @ -None Was patient admitted / discharged? Hospital course, mention meds given and route, prescriptions, significant lab abnormalities, going to OR and other pertinent info. @ -Patient presents with chest discomfort. Initial troponin unremarkable. Patient to be admitted with cardiac consult. Admission orders written. Patient updated. Undiagnosed new problem with uncertain prognosis? @ -No Drug Therapy requiring intensive monitoring for toxicity (Heparin, Nitro, Insulin, Cardizem)? @ -No Were any procedures done? @ -No Diagnosis/symptom? @ -Chest pain Acute, or Chronic, or Acute on Chronic? @ -Acute Uncomplicated (without systemic symptoms) or Complicated (systemic symptoms)? @ -Default Side effects of treatment? @ -No Exacerbation, Progression, or Severe Exacerbation? @ -No Poses a threat to life or bodily function? How? (Chest pain, [place], [place], pneumonia, PE, COPD, DKA, ARF, appy, cholecystitis, CVA, Diverticulitis, Homicidal, Suicidal, threat to staff... and all critical care pts) @ -Threat to cardiac function (Srikanth Christensen) Disposition <Carli Bullard - Last Filed: 11/30/24 14:46> Is patient prescribed a controlled substance at d/c from ED?: No Time of Disposition: 16:41 <Srikanth Christensen - Last Filed: 11/30/24 16:43> Clinical Impression: Chest pain Disposition: ADMITTED IP TO THIS HOSP Referrals: Althea Solares MD [Primary Care Provider] - 1-2 days
[2024-11-30 15:19] LABS: Basophils # (A) 0.1 k/uL (0-0.2); Basophils % (A) 1 %; Eosinophils # (A) 0.2 k/uL (0-0.7); Eosinophils % (A) 3 %; HCT 39.8 % (34.0-46.0); HGB 13.8 gm/dL (11.4-16.0); Lymphocytes # (A) 1.7 k/uL (1.0-4.8); Lymphocytes % (A) 24 %; MCH 31.7 pg (25.0-35.0); MCHC 34.7 g/dL (31.0-37.0); MCV 91.5 fL (80.0-100.0); Mean Platelet Volume 7.8; Monocytes # (A) 0.5 k/uL (0-1.0); Monocytes % (A) 7 %; Neutrophils # (A) 4.5 k/uL (1.3-7.7); Neutrophils % (A) 64 %; Platelet Count 248 k/uL (150-450); RBC 4.35 m/uL (3.80-5.40); RDW 12.4 % (11.5-15.5); WBC 7.1 k/uL (3.8-10.6)
--- NOTE | 2024-11-30 15:21 | XR ---
EXAMINATION TYPE: XR chest 2V DATE OF EXAM: 11/30/2024 COMPARISON: NONE CLINICAL INDICATION: Female, 54 years old with history of Chest Pain; , TECHNIQUE: XR chest 2V views of the chest. FINDINGS: The lungs are clear and there is no pneumothorax, pleural effusion, or focal pneumonia. Heart size normal and no overt failure. Osseous structures intact. IMPRESSION: 1. No acute process. [facility], , 11/30/2024 3:18 PM
[2024-11-30 15:24] LABS: INR 0.8 (<1.2); Partial Thromboplastin Time 24.7 sec (22.0-30.0); Prothrombin Time 9.6 sec (10.0-12.5)
[2024-11-30 15:25] LABS: ALT 25 U/L (4-34); AST 25 U/L (14-36); African American GFR (CKD) >90 (>60 ml/min/1.73 sqM); Albumin 4.5 g/dL (3.5-5.0); Alkaline Phosphatase 105 U/L (38-126); Anion Gap 10 mmol/L; Blood Urea Nitrogen 19 mg/dL (7-17); Calcium 9.9 mg/dL (8.4-10.2); Carbon Dioxide 27 mmol/L (22-30); Chloride 103 mmol/L (98-107); Glucose 96 mg/dL (74-99); Magnesium 2.1 mg/dL (1.6-2.3); Non-African American GFR(CKD) >90 (>60 ml/min/1.73 sqM); Potassium 4.3 mmol/L (3.5-5.1); Sodium 140 mmol/L (137-145); Total Bilirubin 0.7 mg/dL (0.2-1.3); Total Protein 7.5 g/dL (6.3-8.2)
[2024-11-30] MEDS ORDERED: NITROGLYCERIN SL TABS 0.4 MG TAB SUBLINGUAL PRN (16:42)
[2024-11-30] MEDS: NITROGLYCERIN OINT 1 INCH/GM PACKET TOPICAL STA (18:49)
[2024-11-30] MEDS: NITROGLYCERIN OINT 1 INCH/GM PACKET TOPICAL SCH (18:51)
[2024-11-30] MEDS: ASPIRIN 81 MG PO STA (18:51)
[2024-11-30] MEDS: NITROGLYCERIN SL TABS 0.4 MG TAB SUBLINGUAL STA (18:52)
[2024-12-01 00:17] VITALS: TEMP 97.5
[2024-12-01] MEDS: ACETAMINOPHEN TAB 325 MG TAB PO PRN (01:08)
--- NOTE | 2024-12-01 08:03 | P.HPIM ---
History of Present Illness This is a pleasant 54 years old female. With no significant past medical history except as mentioned below Presents because of chest pain which was worrying her since yesterday. She is on the left side of the chest nonradiating about 7-8/10. Feels like a pinch but now pressure a lot when she moves or take deep breath and it feels like a pinch again. No significant relieving factors. No significant dyspnea or coughing. No overt GI/ symptom. No headache or dizziness or weakness or numbness She denies smoking alcohol or illicit drugs She has some headache after using nitro glycerin medicine which is controlled with Tylenol. She is afebrile and vital stable She has unremarkable CBC, BMP, LFT and troponin x 3 are negative D-dimer is negative at 0.48 EKG showing sinus rhythm at 73, no significant ST-T changes Chest x-ray showing no acute cardiopulmonary process Patient was started on aspirin and admitted with cardiology evaluation Review of Systems Review of systems CONSTITUTIONAL: No fever, no malaise, no fatigue. HEENT: No recent visual problems or hearing problems. Denied any sore throat. CARDIOVASCULAR: No orthopnea, PND, no palpitations, no syncope. PULMONARY: No shortness of breath, no cough, no hemoptysis. GASTROINTESTINAL: No diarrhea, no nausea, no vomiting, no abdominal pain. Normoactive bowel sounds. NEUROLOGICAL: No headaches, no weakness, no numbness. HEMATOLOGICAL: Denies any bleeding or petechiae. GENITOURINARY: Denies any burning micturition, frequency, or urgency. MUSCULOSKELETAL/RHEUMATOLOGICAL: Denies any joint pain, swelling, or any muscle pain. ENDOCRINE: Denies any polyuria or polydipsia. Past Medical History Past Medical History: Hyperlipidemia Additional Past Medical History / Comment(s): Dry eyes. Migraines. Paresthesia since Oct 2023 from a fall. History of Any Multi-Drug Resistant Organisms: None Reported Past Surgical History: Section, Cholecystectomy Additional Past Surgical History / Comment(s): Uterine suspension. Past Anesthesia/Blood Transfusion Reactions: Family History of Problems w/ Anesthesia, Motion Sickness, Postoperative Nausea & Vomiting (PONV) Additional Past Anesthesia/Blood Transfusion Reaction / Comment(s): Hx blood transfusion with no problems. "Mother coded during a surgery, was having knee drained, got too much". Past Psychological History: No Psychological Hx Reported Smoking Status: Never smoker Past Alcohol Use History: None Reported Past Drug Use History: None Reported - Past Family History Mother Family Medical History: No Reported History Medications and Allergies Home Medications Medication Instructions Recorded Confirmed Type No Known Home Medications 11/30/24 11/30/24 History Allergies Allergy/AdvReac Type Severity Reaction Status Date / Time No Known Allergies Allergy Verified 11/30/24 17:07 Physical Exam Vitals: Vital Signs Temp Pulse Pulse Resp BP BP Pulse Ox 12/01/24 07:38 66 15 119/72 99 12/01/24 05:28 70 119/72 12/01/24 00:14 97.5 F L 77 16 118/67 96 11/30/24 23:00 64 13 98/59 97 11/30/24 22:00 68 14 113/77 98 11/30/24 21:00 70 8 L 117/69 95 11/30/24 20:55 79 17 117/69 97 11/30/24 20:00 78 16 123/83 98 11/30/24 19:00 80 17 156/89 11/30/24 18:58 79 156/89 98 11/30/24 18:40 97.9 F 74 17 143/79 99 11/30/24 14:36 98.3 F 91 20 148/80 99 Intake and Output 11/30/24 12/01/24 12/01/24 22:59 06:59 14:59 Other: Weight 81.647 kg GENERAL: The patient is alert and oriented x3, not in any acute distress. Well developed, well nourished. HEENT: Pupils are round and equally reacting to light. EOMI. No scleral icterus. No conjunctival pallor. Normocephalic, atraumatic. No pharyngeal erythema. No thyromegaly. CARDIOVASCULAR: S1 and S2 present. No murmurs, rubs, or gallops. PULMONARY: Chest is clear to auscultation, no wheezing , no crackles. ABDOMEN: Soft, nontender, nondistended, normoactive bowel sounds. No palpable organomegaly. MUSCULOSKELETAL: No joint swelling or deformity. EXTREMITIES: No cyanosis, clubbing, or pedal edema. NEUROLOGICAL: Gross neurological examination did not reveal any focal deficits. SKIN: No rashes. no petechiae. Results CBC & Chem 7: 11/30/24 15:05 11/30/24 15:05 Labs: Abnormal Lab Results - Last 24 Hours (Table) 11/30/24 11/30/24 Range/Units 15:05 15:05 PT 9.6 L (10.0-12.5) sec BUN 19 H (7-17) mg/dL Thrombosis Risk Factor Assmnt - Choose All That Apply Any of the Below Risk Factors Present?: Yes Each Factor Represents 1 point: Age 41-60 years, Oral contraceptives or hormone replacement therapy Other Risk Factors: No Other congenital or acquired thrombophilia - If yes, enter type in comment: No Thrombosis Risk Factor Assessment Total Risk Factor Score: 2 Thrombosis Risk Factor Assessment Level: Low Risk Assessment and Plan Assessment: Chest pain, rule out cardiac causes Obesity with BMI of 30.9 Hyperlipidemia Migraine Plan: Continue with aspirin Single troponin was ordered and unremarkable Echocardiogram will be helpful Cardiology consult Labs and medication were reviewed.. Continue same treatment. Continue with symptomatic treatment. Resume home medication. Monitor labs and vitals. DVT and GI prophylaxis. Further recommendations as per clinical course of the patient DVT prophylaxis: Subcutaneous heparin GI Prophylaxis: Pepcid PT/OT: Pending Prognosis is guarded
[2024-12-01] MEDS ORDERED: ASPIRIN 325 MG TAB PO SCH (09:00)
[2024-12-01 09:19] LABS: Chol/HDL Ratio 4.92 Ratio; LDL Cholesterol,Calculated 171.8 mg/dL (0.0-131.0)
[2024-12-01] MEDS: HEPARIN SODIUM,PORCINE 5,000 UNIT/ML 1 ML VIAL SQ SCH (09:58)
[2024-12-01] MEDS: ASPIRIN 81 MG PO SCH (10:03)
[2024-12-01] MEDS: FAMOTIDINE 20 MG/2 ML VIAL IV SCH (10:03)
--- NOTE | 2024-12-01 13:44 | CA ---
Stress Echo Report Marquez Elizabeth Age: 54 Gender: F : 1970 Exam Date: 12/01/2024 12:37 Exam Location: [facility] Ht (in): 64 Wt (lb): 180 Ordering Physician: Hilary Siddiqui Referring Physician: [id number] Seam Finisher: Sara Pike RDCS Technologist Procedure CPT: Indication: Chest Pain ICD-9 Codes: Rhythm: Patient History: Chest pain, shortness of breath and palpitations. Cardiac Medications: Medications in past 24 hours: Contrast: Stress Results Protocol: Alvarez Total dose(mL): Exercise Duration (min:sec): 6:[address] Depression (mm): Angina Score: Gutiérrez Score: METS: 7.7 Resting HR: 90 Resting BP: 138 / 77 Peak HR: 177 Peak BP: 207 / 70 Max Predicted HR: 166 107 % Max Predicted HR Target HR: 141 Double Product: [id number] Stress Summary: BP Response: Reason for Termination: MAX EXERTION/TARGET HR Cardiac Symptoms: NO SYMPTOMS ECG Analysis Resting ECG: Stress ECG: Arrhythmia: Echo Analysis Resting Echo: Peak Echo Analysis: MEASUREMENTS (Male/Female) Normal Values CONCLUSIONS Patient underwent exercise stress echo with a Alvarez protocol treadmill stress test. Patient exercised into Stage 3 for a total of 6 minutes and 31 seconds reaching a total of 7.7 METS. Patient's maximum heart rate was 177 which represented 106 % age-predicted maximum heart rate. Stress EKG portion: At baseline patient's EKG showed normal sinus rhythm, normal axis, no significant ST or T wave abnormalities. At peak exercise, EKG showed mild nonspecific 0.[address] depressions in the inferior lateral leads. Stress echo portion: 2-D echocardiogram was performed in the parasternal long, personal short, apical 2 and apical four-chamber views at rest, peak exercise and in recovery. At baseline, echocardiogram showed left ventricular ejection fraction 55% without wall motion abnormalities. With peak exercise, echocardiogram shows improvement in left ventricular ejection fraction, increase contractility, decrease in left ventricular end systolic dimension without wall motion abnormalities consistent with a normal response to exercise. Conclusions: 1. Normal EKG and echo response to exercise without evidence of inducible ischemia. 2. Fair exercise capacity. Dr. Tristan Gerber DO (Electronically Signed) Final Date: 01 December 2024 13:43
--- NOTE | 2024-12-01 13:45 | P.CRDCN ---
History of Present Illness Consult date: 12/01/24 Consult reason: chest pain History of present illness: This is a 54-year-old female with past medical history of hyperlipidemia, migraine headaches. We have been asked to evaluate the patient for chest pain. 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 She states when she finished her shift yesterday she was developing midsternal stabbing type chest pain. She drove 3-1/2 hours to come home. On the drive she felt she had a charley horse in her jaw area. Once she arrived home, she laid down for a while and after couple hours she still had the pain and in general was not feeling well. She came into the hospital for further evaluation. She does have pain with deep breathing and with certain movements. She was given Nitropaste which caused her severe headache. She denies history of tobacco use and no alcohol use. She denies having a previous stress test or echocardiogram in the past. Pain is located above the left breast and is tender to touch and worse with deep breathing and moving. Patient has been started on aspirin and Nitropaste. Blood pressure 119/72, heart rate 66, pulse ox 99% on room air. Patient is seen today in the emergency center waiting for a bed on the observation unit. -EKG: Sinus rhythm with no acute ST changes -Chest x-ray: No acute process -Laboratory studies: CBC, D-dimer, INR within normal limits. Sodium 140, potassium 4.3, BUN 19 creatinine 0.65. Troponin negative x 3. -Home cardiac medications: None Review Of Systems: At the time of my exam: CONSTITUTIONAL: Denies fever or chills. HEENT: Denies blurred vision, vision changes, or eye pain. Denies hemoptysis CARDIOVASCULAR: Reports chest pain. Denies orthopnea. Denies PND. Denies palpitations RESPIRATORY: Denies shortness of breath. GASTROINTESTINAL: Denies abdominal pain. Denies nausea or vomiting. HEMATOLOGIC: Denies bleeding disorders. GENITOURINARY: Denies any blood in urine. SKIN: Denies puritis. Denies rash. Physical examination: Gen: This is a 54-year-old female in no acute distress VS: reviewed HEENT: Head is atraumatic, normocephalic. Pupils equal, round. Sclerae is anicteric. NECK: Supple. No JVD. LUNGS: Clear to auscultation. No wheezes or rhonchi. No intercostal retractions. HEART: Regular rate and rhythm. No murmur. ABDOMEN: Soft No tenderness. EXTREMITIES: No pedal edema. No calf tenderness. NEUROLOGICAL: Patient is awake, alert and oriented x3. Assessment: Atypical chest pain, acute coronary syndrome ruled out Chest pain is reproducible and most likely muscular skeletal Hyperlipidemia Migraine headaches Plan: Discontinue Nitropaste Obtain stress echocardiogram today Obtain 2-D echocardiogram and Doppler study to assess cardiac structure and function If stress test is unremarkable, patient is cleared for discharge home. Thank you kindly for this consultation. Nurse practitioner note has been reviewed, I agree with documented findings and plan of care. Patient was seen and examined. Past Medical History Past Medical History: Hyperlipidemia Additional Past Medical History / Comment(s): Dry eyes. Migraines. Paresthesia since Oct 2023 from a fall. History of Any Multi-Drug Resistant Organisms: None Reported Past Surgical History: Section, Cholecystectomy Additional Past Surgical History / Comment(s): Uterine suspension. Past Anesthesia/Blood Transfusion Reactions: Family History of Problems w/ Anesthesia, Motion Sickness, Postoperative Nausea & Vomiting (PONV) Additional Past Anesthesia/Blood Transfusion Reaction / Comment(s): Hx blood transfusion with no problems. "Mother coded during a surgery, was having knee drained, got too much". Past Psychological History: No Psychological Hx Reported Smoking Status: Never smoker Past Alcohol Use History: None Reported Past Drug Use History: None Reported - Past Family History Mother Family Medical History: No Reported History Medications and Allergies Home Medications Medication Instructions Recorded Confirmed Type No Known Home Medications 11/30/24 11/30/24 History Allergies Allergy/AdvReac Type Severity Reaction Status Date / Time No Known Allergies Allergy Verified 11/30/24 17:07 Physical Exam Vitals: Vital Signs Temp Pulse Pulse Resp BP BP Pulse Ox 12/01/24 07:38 66 15 119/72 99 12/01/24 05:28 70 119/72 12/01/24 00:14 97.5 F L 77 16 118/67 96 11/30/24 23:00 64 13 98/59 97 11/30/24 22:00 68 14 113/77 98 11/30/24 21:00 70 8 L 117/69 95 11/30/24 20:55 79 17 117/69 97 11/30/24 20:00 78 16 123/83 98 11/30/24 19:00 80 17 156/89 11/30/24 18:58 79 156/89 98 11/30/24 18:40 97.9 F 74 17 143/79 99 11/30/24 14:36 98.3 F 91 20 148/80 99 Intake and Output 11/30/24 12/01/24 12/01/24 22:59 06:59 14:59 Other: Weight 81.647 kg Results 11/30/24 15:05 11/30/24 15:05 Cardiac Enzymes 11/30/24 11/30/24 11/30/24 Range/Units 15:05 15:05 18:38 AST 25 (14-36) U/L Troponin I <0.012 <0.012 (0.000-0.034) ng/mL 11/30/24 Range/Units 23:32 AST (14-36) U/L Troponin I <0.012 (0.000-0.034) ng/mL Coagulation 11/30/24 Range/Units 15:05 PT 9.6 L (10.0-12.5) sec APTT 24.7 (22.0-30.0) sec CBC 11/30/24 Range/Units 15:05 WBC 7.1 (3.8-10.6) k/uL RBC 4.35 (3.80-5.40) m/uL Hgb 13.8 (11.4-16.0) gm/dL Hct 39.8 (34.0-46.0) % Plt Count 248 (150-450) k/uL Comprehensive Metabolic Panel 11/30/24 Range/Units 15:05 Sodium 140 (137-145) mmol/L Potassium 4.3 (3.5-5.1) mmol/L Chloride 103 (98-107) mmol/L Carbon Dioxide 27 (22-30) mmol/L BUN 19 H (7-17) mg/dL Creatinine 0.65 (0.52-1.04) mg/dL Glucose 96 (74-99) mg/dL Calcium 9.9 (8.4-10.2) mg/dL AST 25 (14-36) U/L ALT 25 (4-34) U/L Alkaline Phosphatase 105 (38-126) U/L Total Protein 7.5 (6.3-8.2) g/dL Albumin 4.5 (3.5-5.0) g/dL Current Medications Generic Name Dose Route Start Last Admin Trade Name Freq PRN Reason Stop Dose Admin Acetaminophen 650 mg 12/01/24 00:36 12/01/24 06:13 Acetaminophen Tab 325 Mg Tab PO 650 mg Q6HR PRN Administration Fever and/ or Pain Aspirin 325 mg 12/01/24 09:00 Aspirin 325 Mg Tab PO DAILY [facility] Famotidine 20 mg 12/01/24 09:00 Famotidine 20 Mg/2 Ml Vial IV Q12HR [facility] Heparin Sodium (Porcine) 5,000 unit 12/01/24 09:00 Heparin Sodium,Porcine 5,000 Unit/Ml 1 Ml Vial SQ Q12HR [facility] Nitroglycerin 0.4 mg 11/30/24 16:42 Nitroglycerin Sl Tabs 0.4 Mg Tab SUBLINGUAL Q5M PRN Chest Pain Nitroglycerin 1 inch 11/30/24 18:00 12/01/24 06:14 Nitroglycerin Oint 1 Inch/Gm Packet TOPICAL 1 inch Q6HR [facility] Administration Intake and Output 11/30/24 12/01/24 12/01/24 22:59 06:59 14:59 Other: Weight 81.647 kg 11/30/24 15:05 11/30/24 15:05
[2024-12-01 14:18] VITALS: BP 117/76; RESP 16
[2024-12-01 16:07] VITALS: PULSE 85
--- NOTE | 2024-12-01 16:20 | CA ---
Transthoracic Echo Report Name: Marquez Elizabeth Age: 54 Gender: F : 1970 Exam Date: 12/01/2024 13:00 Exam Location: [place] [facility] Ht (in): 64 Wt (lb): 180 Ordering Physician: Hilary Siddiqui Attending/Referring Phys: [id number], Chen Director [employer] Sara Pike RDCS Procedure CPT: Indications: LVF Cardiac Hx: Technical Quality: Fair Contrast 1: Total Dose (mL): Contrast 2: Total Dose (mL): MEASUREMENTS (Male / Female) Normal Values 2D ECHO LV Diastolic Diameter PLAX 4.3 cm 4.2 - 5.9 / 3.9 - 5.3 cm LV Systolic Diameter PLAX 3.0 cm IVS Diastolic Thickness 0.9 cm 0.6 - 1.0 / 0.6 - 0.9 cm LVPW Diastolic Thickness 0.9 cm 0.6 - 1.0 / 0.6 - 0.9 cm LV Relative Wall Thickness 0.4 RV Internal Dim ED PLAX 2.8 cm LA Systolic Diameter LX 3.4 cm 3.0 - 4.0 / 2.7 - 3.8 cm LV Diastolic Volume MOD 4C 69.3 cm??? LV Systolic Volume MOD 4C 31.1 cm??? LV Ejection Fraction MOD 4C 55.2 % LV Cardiac Index MOD 4C 1865.0 cm???/min???m??? LV Diastolic Length 4C 7.7 cm LV Systolic Length 4C 6.1 cm LV Diastolic Volume MOD 2C 98.6 cm??? LV Systolic Volume MOD 2C 46.3 cm??? LV Ejection Fraction MOD 2C 53.0 % LV Cardiac Index MOD 2C 2550.5 cm???/min???m??? LV Diastolic Length 2C 8.2 cm LV Systolic Length 2C 6.4 cm LA Volume 42.6 cm??? 18 - 58 / 22 - 52 cm??? LA Volume Index 21.8 cm???/m??? 16 - 28 cm???/m??? M-MODE Aortic Root Diameter MM 2.5 cm DOPPLER AV Peak Velocity 146.5 cm/s AV Peak Gradient 8.6 mmHg MV Area PHT 4.3 cm??? Mitral E Point Velocity 103.1 cm/s Mitral A Point Velocity 111.1 cm/s Mitral E to A Ratio 0.9 MV Deceleration Time 176.4 ms TR Peak Velocity 241.7 cm/s TR Peak Gradient 23.4 mmHg Right Ventricular Systolic Press 27.7 mmHg FINDINGS Left Ventricle Left ventricular ejection fraction is estimated at 55-60 %. Left ventricular cavity size normal. Left ventricular wall thickness normal. Normal left ventricular wall motion. Right Ventricle Normal right ventricular size. Right ventricular systolic pressure within normal limits. Right Atrium Normal right atrial size. No right atrial thrombus or mass seen. Left Atrium Normal left atrial size. No left atrial thrombus or mass present. Mitral Valve Structurally normal mitral valve. No mitral stenosis, regurgitation or prolapse. Aortic Valve Trileaflet aortic valve. No aortic valve stenosis or regurgitation. Tricuspid Valve Structurally normal tricuspid valve. Mild tricuspid regurgitation. Pulmonic Valve Pulmonic valve not well visualized. No pulmonic regurgitation. Pericardium No pericardial effusion. Aorta Normal size aortic root and proximal ascending aorta. CONCLUSIONS Left ventricular ejection fraction 55-60% No mitral regurgitation Mild tricuspid regurgitation RVSP 27 No pericardial effusion Previewed by: Dr. Tristan Gerber DO (Electronically Signed) Final Date: 01 December 2024 16:19
== END 2024-12-01 18:55 | disposition home or self-care (01) ==
LOC: EC 14:34 → 6NMEDSUR 16:42
PROVIDERS: ADMIT Hospitalist; ATTEND Hospitalist
DX: R07.89 Other chest pain (principal); G43.909 Migraine, unspecified, not intractable, without status migrainosus; T46.3X5A Adverse effect of coronary vasodilators, initial encounter; E78.5 Hyperlipidemia, unspecified; R68.84 Jaw pain; M54.9 Dorsalgia, unspecified; E66.9 Obesity, unspecified; Z68.30 Body mass index [BMI] 30.0-30.9, adult
CPT/HCPCS: 96374; 99285; 36415; 93005 ×2; 93306; 93351; 85379; 80061; 80053; 83735; 84484; 85025; 85610; 85730; 71046; G0378 ×2; J3490

== ENCOUNTER 2024-12-11 08:15 | Day surgery (SDC) | payer OTHER ==
[2024-12-09 10:36] VITALS: BMI 30.9
[2024-12-11 08:47] VITALS: TEMP 97.2
[2024-12-11] MEDS ORDERED: IOPAMIDOL M200 10 ML VIAL ONE (09:35)
[2024-12-11] MEDS ORDERED: methylPREDNISolone ACETATE 80 MG/ML 1 ML VIAL ONE (09:35)
--- NOTE | 2024-12-11 09:47 | P.PCN ---
Date of Procedure: 12/11/24 Procedure(s) Performed: PREOPERATIVE DIAGNOSIS: 1-Lumbar radiculopathy . 2-lumbar degenerative disc disease. 3-lumbar spondylosis with lumbar facet arthropathy without myelopathy POSTOPERATIVE DIAGNOSIS: 1-lumbar radiculopathy. 2-lumbar degenerative disc disease. 3-lumbar spondylosis with facet arthropathy without myelopathy PROCEDURE 1. Transforaminal epidural steroid injection under fluoroscopic guidance at bilateral L5-S1 level. (Fluoroscopy images stored on file in the radiology Department ) 2. Lumbar epidurogram . ANESTHESIA: Local with 1% lidocaine 3 ml. EBL: Minimal PROCEDURE INDICATION: The patient with low back pain and radiculopathy symptoms unresponsive to conservative treatment. PROCEDURE DESCRIPTION / TECHNIQUE: The patient was seen and identified in the preoperative area. Risks, benefits, complications, and alternatives were discussed with the patient. The patient agreed to proceed with the procedure and signed the consent, and vital signs were stable. Patient was taken to the OR and time out was completed. The patient was placed in the prone position on procedure table and a pillow was placed under the abdomen to reduce lumbar lordosis. The lumbosacral area was prepped and draped in the usual sterile fashion. Critical pause was taken. Vital signs were closely monitored during the procedure. Using oblique fluoroscopy, the chin of the `Juan ACornel dog at Right L5-S1 level was identified, and the skin and deeper tissues just below was localized with 1% lidocaine. Subsequently, a 22-gauge 3.5-inch spinal needle was advanced under a tunneled view fluoroscopic guidance just underneath the chin of the `Justiny dog at the right L5-S1 Under lateral fluoroscopy, the needle was then advanced to the posterior border of the interforaminal space. After negative aspiration of CSF and blood and with no paresthesias, 1 mL Isovue 200 contrast dye was injected excellent epidurogram and outlining of the nerve root Subsequently, 3 mL of block solution containing 40 mg Depo-Medrol and 2 mL of 0.9% normal saline PF was injected. Needle was removed and the same procedure was repeated at the left L5-S1 level . At the end of the procedure, skin was cleansed, and bandages were applied. COMPLICATIONS:none DISPOSITION / PLANS: The patient was placed in a supine position and transferred to the recovery area in a stable condition for observation. There was no evidence of lower extremity motor or sensory deficit after the procedure. Patient was discharged from the recovery room after meeting discharge criteria. Home discharge instructions were given to the patient by the staff. The patient was reexamined prior to discharge.
[2024-12-11 09:56] VITALS: RESP 17
--- NOTE | 2024-12-11 10:00 | FL ---
Intraoperative/procedural fluoroscopic services were provided for transforaminal epidural steroid inj ection of the lumbar spine. Total fluoroscopy time is 14.6 seconds with a total of 3 submitted images to PACS. Total DAP [id number] [id number]. Please see the operative note for further details. [facility], , 12/11/2024 9:58 AM
[2024-12-11 10:07] VITALS: BP 151/78; PULSE 78
== END 2024-12-11 10:10 | disposition home or self-care (01) ==
LOC: ORPAIN 08:15
PROVIDERS: ATTEND Specialist
DX: M47.26 Other spondylosis with radiculopathy, lumbar region (principal); M51.16 Intervertebral disc disorders with radiculopathy, lumbar region
CPT/HCPCS: 64483; Q9966; J1010